=== PATIENT | female | born 1960 | race African-American/Black ===

== ENCOUNTER 2019-11-18 03:18 | Inpatient (IN) | payer MEDICARE ==
[~2019-11-18] VITALS: Ht 157.5 cm; Wt 130.0 kg
[2019-11-18] VITALS (20 sets, daily range): BP systolic 101–141; BP diastolic 61–92; Ht 157.5 cm; Wt 130.0 kg
--- NOTE | ~2019-11-18 | HEMODYNAMI ---
PATIENT:COMFORT STANLEY MEDICAL RECORD: [id number] : 64 LOCATION:[facility] D.2131 ADMISSION DATE: 11/18/19 Generatedon:11/21/201910:18 Patient name: COMFORT STANLEY Patient #: [id number] SSN: : 1960 Date of study: 11/21/2019 Page: Of Hemodynamic Procedure Report Patient Data Patient Demographics First Name: COMFORT Gender: Female Last Name: JADEN : 1960 Patient #: [id number] Age: 59 year(s) Race: Black Additional ID: [id number] Contact details [address]: [address] [place] [address] State: [place] City: [place] Zip code: [address] Past Medical History Allergies Allergen Reaction Date Comments Reported Other allergy 11/21/2019 ASA Admission Admission Data Admission Date: 11/18/2019 Admission Time: 3:51 Arrival Date: 11/21/2019 Arrival Time: 0:00 Admit Source: Other Insurance Payor: Medicare Room #: D.2131 [facility] #: [id number] Height (in.): 63 BSA: 2.25 (m2) Height (cm.): 160.02 BMI: 50.84 (kg/m2) Weight (lbs.): 287 Weight (kg.): 130.18 Lab Results Lab Result Date: 11/21/2019 Lab Result Time: 0:00 Biochemistry Name Units Result Min Max BUN mg/dl 18 --(---*)-- 7 18 Creatinine mg/dl 0.9 --(-*--)-- 0.6 1.3 eGFR ml/min 82.44324 -*(----)-- 90 120 AM CBC Name Units Result Min Max Hemoglobin g/dl 13.9 --(*---)-- 13.5 17.5 Procedure Procedure Types Cath Procedure Diagnostic Procedure LHC LHC w/Coronaries Sedation Charges Moderate Sedation up to 15 minutes Procedure Description Procedure Date Procedure Date: 11/21/2019 Procedure Start Time: 10:05 Procedure End Time: 10:14 Procedure Staff Name Function Sawyer Van MD Performing Physician Holly Barnes RT Monitor Raya Weathers RN Nurse Kamini Carmichael RT Scrub Procedure Data Cath Procedure Fluoroscopy Diagnostic fluoroscopy Total fluoroscopy Time: 1.1 time: 1.1 min min Diagnostic fluoroscopy Total fluoroscopy dose: 586 dose: 586 mGy mGy Contrast Material Contrast Material Type Amount (ml) Isovue 370 53 Entry Location Entry Primary Successful Side Size Upsize Upsize Entry Closure Succes sful Closure Location (Fr) 1 (Fr) 2 (Fr) Remarks Device Remarks Femoral Right 5 Fr Exoseal artery Estimated blood loss: 10 ml Diagnostic catheters Device Type Used For End Catheter Placement MULTIPACK JL 4.0 5Fr Procedure catheter MULTIPACK 3DRC 5Fr Procedure catheter MULTIPACK Pigtail 5 Fr Ventriculography catheter Procedure Complications No complications Procedure Medications Medication Administration Route Dosage 0.9% NaCl I.V. 50 ml/hr Heparin Flush Bag added to field 2 bags (1000units/500ml NS) Lidocaine 2% added to field 20 Oxygen NC 3 l/min Versed I.V. 1 mg Fentanyl I.V. 50 mcg Versed I.V. 1 mg Fentanyl I.V. 50 mcg Hemodynamics Rest BSA: 2.25 (m2) HGB: 13.9 (g/dl) O2 Consumption: Estimated: 229.99 (ml/min) O2 Co nsumption indexed: Estimated:102.22 (ml/min/m) Heart Rate: 87 (bpm) Pressure Samples Time Site Value (mmHg) Purpose Heart Use Rate(bpm) 10:12 LV 149/29,32 Snapshot 89 Gradients Valve Time Site Site Mean SEP/DFP Peak To Heart Use 1 2 (mmHg) (sec/min) Peak Rate (mmHg) (bpm) Aortic 10:12 LV AO 91 Snapshots Pre Cath Intra NCS Post Cath Vital Signs Time Heart Resp SPO2 etCO2 NIBP (mmHg) Rhythm Pain Sedation Rate (ipm) (%) (mmHg) Status Level (bpm) 9:50:46 87 15 95 12.8 151/103(124) NSR 0 (11) 10(A) , No pain 9:55:02 91 22 95 34.7 137/92(113) NSR 0 (11) 10(A) , No pain 9:59:14 87 22 98 41.6 142/98(121) NSR 0 (11) 10(A) , No pain 10:03:27 89 20 98 40.1 141/96(120) NSR 0 (11) 10(A) , No pain 10:07:44 89 18 99 46.1 148/100(117) NSR 0 (11) 10(A) , No pain 10:12:02 89 18 99 36.3 153/103(131) NSR 0 (11) 10(A) , No pain Medications Time Medication Route Dose Verified Delivered Reason Notes Effe ctiveness by by 9:54:41 0.9% NaCl I.V. 50 Sawyer Raya used for ml/hr Naponee Jasiel procedure RN 9:54:49 Heparin Flush added 2 Sawyer Raya used for Bag to bags Naponee Jasiel procedure (1000units/500ml field HERNANDEZ RN NS) 9:55:01 Lidocaine 2% added 20ml Sawyer Raya [facility] local [facility] HERNANDEZ RN 9:55:09 Oxygen NC 3 Sawyer Raya for low 02 l/min Carlota Jasiel sats RN 9:58:52 Versed I.V. 1 mg Sawyer Raya for Carlota Jasiel sedation RN 9:58:59 Fentanyl I.V. 50 Sawyer Raya for mcg Carlota Jasiel sedation RN 10:09:57 Versed I.V. 1 mg Sawyer Raya for Carlota Jasiel sedation MD GOODEN 10:10:01 Fentanyl I.V. 50 Sawyer Raya for mcg Naponee Jasiel sedation MD GOODENborder measurer and cutter Log Time Note 9:28:01 Patient Height : 63 inches 9:28:07 Patient Weight : 287 lbs 9:28:13 Insurance Payor : Medicare 9:28:14 Admit Source: Other 9:28:18 Arrival Date: 11/21/2019 12:00:00 AM 9:28:59 Lab Result : eGFR AM 82.75485 ml/min 9:28:59 Lab Result : Creatinine 0.9 mg/dl 9:28:59 Lab Result : BUN 18 mg/dl 9:28:59 Lab Result : Hemoglobin 13.9 g/dl 9:29:43 Procedure Status Urgent Heart Cath (IP). 9:29:46 Kamini Carmichael RT(R) sent for patient. Start room use. 9:29:48 Time tracking: Regular hours (M-F 7:00 - 5:00) 9:29:52 Plan of Care:Hemodynamics will remain stable., Cardiac rhythm will remain stable., Comfort level will be maintained., Respiratory function will remain adequate., Patient/ family verbilizes understanding of procedure., Procedure tolerated without complication., Recovers from procedure without complications.. 9:29:58 Patient received from Med II to CCL 2 Alert and oriented. Tansferred to table in Supine position. 9:29:59 Warm blankets applied, and karol hugger turned on for patient comfort. 9:30:00 Correct patient and procedure confirmed by team. 9:49:28 ECG and BP/O2 sat monitors applied to patient. 9:49:30 Vital chart was started 9:49:32 Baseline sample Acquired. 9:49:40 H&P Date Dictated: 11/20/2019 Within 30 days and on chart., H&P Addendum completed by physician on day of procedure. (MUST COMPLETE FOR ALL OUTPATIENTS). 9:49:42 Pre-procedure instructions explained to patient. 9:49:46 Family in patients room. 9:49:48 Patient NPO since Midnight. 9:49:58 Patient allergic to Other allergyASA 9:50:07 Is the patient allergic to Iodine/contrast media? No. 9:50:08 Was the patient premedicated? Yes 9:50:09 Is patient on blood thinner?Yes 9:50:13 ACC The patient was administered the following blood thiners within the last 24 hours: ACCHeparin 9:50:17 Patient diabetic? No. 9:50:25 Snore? Yes 9:50:26 Sleep apnea? Yes 9:50:33 Dentures? No ? 9:50:37 Patient pain scale 0/10 ?. 9:50:43 IV patent on arrival in right forearm with 0.9% NaCl at O. 9:54:41 0.9% NaCl 50 ml/hr I.V. was administered by Raya Weathers RN; used for procedure; Verbal order read back and verified. 9:54:49 Heparin Flush Bag (1000units/500ml NS) 2 bags added to field was administered by Raya Weathers RN; used for procedure; Verbal order read back and verified. 9:55:01 Lidocaine 2% 20ml vial added to field was administered by Raya Weathers RN; for local anesthetic; Verbal order read back and verified. 9:55:09 Oxygen 3 l/min NC was administered by Raya Weathers RN; for low 02 sats; Verbal order read back and verified. 9:56:54 Lab results completed and on chart. 9:57:02 Risk of Mortality: 11.5 9:57:07 Risk of blood transfusion: 8.4 9:57:10 Risk of MARIAN: 6.2 9:57:14 Right groin area was prepped with chlora-prep and draped in sterile fashion 9:57:15 Alarms reviewed by R. N. 9:57:15 Sharps counted by scrub and verified by R.N. 9:57:16 Physician arrived 9:57:28 --------ALL STOP TIME OUT------ 9:57:30 Final Timeout: patient, procedure, and site verified with staff and physician. All members of the team are in agreement. 9:57:37 Right groin site verified by team. 9:57:41 Fire Safety Assessment: A--An alcohol-based skin anteseptic being used preoperatively., C--Open oxygen or nitrous oxide is being used., D--An ESU, laser, or fiber-optic light is being used. 9:57:45 Physical assessment completed. ASA score P 3 - A patient with severe systemic disease as per Sawyer Van MD. 9:57:52 2) 60-89 Mildly reduced kidney function, and other findings (as for stage 1) point to kidney disease. 9:57:55 Maximum allowable contrast dose (3.7 X eGFR X 0.75)230 ml. 9:58:01 Sedation plan: IV Moderate Sedation Medication:Versed, Fentanyl 9:58:05 Use device set Femoral Dx 9:58:06 ACIST Syringe (81406) opened to sterile field. 9:58:06 Bag Decanter () opened to sterile field. 9:58:07 Medline Cath Pack ([id number]) opened to sterile field. 9:58:08 ACIST Hand Control (76145) opened to sterile field. 9:58:08 ACIST Manifold (35081) opened to sterile field. 9:58:10 DIAGNOSTIC Multipack 5Fr catheter set (GW9400) opened to sterile field. 9:58:11 Tegaderm 4 x 4 (1626W) opened to sterile field. 9:58:12 SHEATH 5FR Wren (EBL758) opened to sterile field. 9:58:13 EMERALD Guide Wire (843-695) opened to sterile field. 9:58:52 Versed 1 mg I.V. was administered by Raya Weathers RN; for sedation; Verbal order read back and verified. 9:58:59 Fentanyl 50 mcg I.V. was administered by Raya Weathers RN; for sedation; Verbal order read back and verified. 10:05:05 Procedure started. 10:05:05 Full Disclosure recording started 10:05:13 Local anesthetic to right femoral artery with Lidocaine 2% by Sawyer Van MD.INITIAL ACCESS ONLY 10:05:21 A 5 Fr sheath was inserted into the Right Femoral artery 10:07:48 A MULTIPACK JL 4.0 5Fr catheter was advanced over the wire and used for Procedure. 10:07:51 LCA angiography performed. 10:09:57 Versed 1 mg I.V. was administered by Raya Weathers RN; for sedation; Verbal order read back and verified. 10:10:01 Fentanyl 50 mcg I.V. was administered by Raya Weathers RN; for sedation; Verbal order read back and verified. 10:10:06 Catheter removed. 10:10:13 A MULTIPACK 3DRC 5Fr catheter was advanced over the wire and used for Procedure. 10:10:17 RCA angiography performed. 10:10:52 Catheter removed. 10:11:00 A MULTIPACK Pigtail 5 Fr catheter was advanced over the wire and used for Ventriculography. 10:11:03 LV gram done using ARMENDARIZ 10:12:15 EF : 55 % 10:12:21 EXOSEAL 5Fr (EX500) opened to sterile field. 10:12:32 Catheter removed. 10:12:43 Sheath removed intact; hemostasis achieved with Exoseal to the Right Femoral artery. 10:12:46 Procedure ended.(Physican Out) 10:12:56 Fluoroscopy time 01.10 minutes. 10:13:00 Fluoroscopy dose: 586 mGy 10:13:00 Flurop Dose total: 586 10:13:05 Dose Area Product 20293 mGy/cm. 10:13:35 Contrast amount:Isovue 370 53ml. 10:13:36 Maximum allowable dose exceeded? No. 10:13:45 Post right femoral artery:stable 10:13:47 Post Procedure Pulses reassessed and unchanged 10:13:59 Post-procedure physical assessment completed. ASA score P 3 - A patient with severe systemic disease as per Sawyer Van MD. 10:14:02 Post procedure rhythm: unchanged. 10:14:05 Estimated blood loss: 10 ml 10:14:06 Post procedure instruction explained to patient.Patient verbalizes understanding. 10:14:21 Procedure type changed to Cath procedure, Diagnostic procedure, LHC, [facility] w/Coronaries, Sedation Charges, Moderate Sedation up to 15 minutes 10:14:22 Procedure and supply charges have been captured, reviewed, submitted and are correct. 10:14:37 Procedure Complication : No complications 10:14:40 Vital chart was stopped 10:14:42 [facility] Findings: MVD- MD will discuss options w/ pt 10:14:44 Operative report dictated upon procedure completion. 10:14:45 See physician's report for complete and final results. 10:14:48 Report given to [facility]. 10:14:51 Patient transfered to [facility] with Bed. 10:14:53 Procedure ended. 10:14:53 Full Disclosure recording stopped Device Usage Item Name Manufacture Quantity Catalog Hospital Part Current Minimal L ot# / Number Charge Number Stock Stock Serial# Code ACIST Acist 1 19718 339952 213696 581308 20 Syringe Medical (58889) Systems Inc Bag Microtek 1 698327 62042 805554 5 Decanter Medical Inc. () Medline Medline 1 [id number] 839168 82876 321046 5 Cath Pack ([id number]) ACIST Hand Acist 1 35222 834528 975083 040429 5 Control Medical (46986) Systems Inc ACIST Acist 1 05716 756542 144268 014208 5 Manifold Medical (96189) Systems Inc DIAGNOSTIC Cardinal 1 [id number] 366268 24225 487646 30 Opanga Networks 5Fr catheter set ([id number]) Tegaderm 4 3M 1 1626W 123408 944842 661046 5 x 4 (1626W) SHEATH 5FR Terumo 1 PMP145 987800 339120 502437 5 Wren (BBR343) EMERALD Cardinal 1 571-103 715615 701487 326819 5 Guide Wire Health (656-179) MULTIPACK Cardinal 1 889693 5 JL 4.0 5Fr Health catheter MULTIPACK Cardinal 1 783700 5 3DRC 5Fr Health catheter MULTIPACK Cardinal 1 666966 5 Pigtail 5 Health Fr catheter EXOSEAL 5Fr Cardinal 1 EX500 437869 767627 650160 10 (EX500) Health Signature Audit [place] Stage Time Signature Unsigned Intra-Procedure 11/21/2019 Holly Barnes 10:15:24 AM RT(R); Raya Weathers RN; Sawyer Van MD Signatures Performing Physician : Signature : Sawyer Van MD Date : Time : Monitor : Holly Barnes Signature : RT Date : Time : Nurse : Raya Signature : Jasiel GOODEN Date : Time : [facility] [address] [place] [address]
[2019-11-18 04:11] LABS: CKMB 2.5 U/L (0.0-3.6); CREATINE KINASE 229 UL (21-215); PRO BNP 4642 pg/mL (0-125)
[2019-11-18 05:20] LABS: HEMATOCRIT 43.4 % (36.0-48.0); HEMOGLOBIN 13.8 g/dL (12-16); MCH 32.4 pg (26.0-34.0); MCHC 31.8 g/dL (31.0-37.0); MCV 101.9 fL (80.0-100.0); MEAN PLATELET VOLUME 11.6 fL (7.4-10.4); RBC 4.26 10x6/uL (4.00-5.40); RDW 13.3 % (11.5-14.5); WBC 6.8 10x3/uL (4.8-10.8)
[2019-11-18 05:24] LABS: INR 1.07 (0.85-1.17); PROTIME 13.8 SECONDS (11.6-15.0)
[2019-11-18 05:25] LABS: APTT 70.2 SECONDS (22.8-39.4)
--- NOTE | 2019-11-18 05:31 | NUR ---
RECEIVED PT FROM ED VIA STRETCHER ACCOMP BY ED NURSE AND RT. PT TRANSFERRED TO ICU BED, PIPE AND TANK FABRICATOR ATTACHED. RT AT BEDSIDE PLACED PT ON BIPAP. PT LETHARGIC AND SOMNOLENT, AROUSES WITH VOICE, SR ON CM, ADMISSION ASSESSMENT AND HISTORY COMPLETED. CALL LIGHT IN REACH. WILL CONT TO MONITOR.
[2019-11-18] MEDS ORDERED: LEVOTHYROXINE137 MCG PO (05:50)
[2019-11-18] MEDS ORDERED: WELLBUTRIN SR150 MG PO (05:50)
[2019-11-18] MEDS ORDERED: MOBIC7.5 MG PO (05:51)
[2019-11-18] MEDS ORDERED: NORVASC10 MG PO ×2 (05:51→05:54)
[2019-11-18] MEDS ORDERED: MAXZIDE 75/501 TAB PO (05:52)
[2019-11-18] MEDS ORDERED: METOPROLOL TART50 MG PO (05:54)
--- NOTE | 2019-11-18 07:00 | NUR ---
RECEIVED BEDSIDE REPORT ON PATIENT AND ASSUMED CARE. PATIENT RESTING QUIETLY WITH EYES CLOSED, EASILY AROUSED BY VOICE, ALERT AND ORIENTED X 4, ON BIPAP WITH SPO2 AT 96%, SETTINGS FIO2 40%, 16/8, CM - NSR RATE OF 68 WITH NO ECTOPY NOTED. BBS - EXPIRATORY WHEEZES BILATERALLY AND DIMINISHED IN THE BASES. IV 20 GA TO LEFT WRIST WITH HEPARIN INFUSING AT 1,000 UNIT/HR (10 ML/HR). IV 20 GA TO RIGHT AC NS, FLUSHES EASILY. BROOKE CATH IN PLACE WITH 500 ML OF CLEAR UOP NOTED. HEAD TO TOE ASSESSMENT COMPLETED. VSS.
--- NOTE | 2019-11-18 07:53 | NUR ---
DR MONROE CALLED AND MADE AWARE OF CARDIOLOGY CONSULT.
--- NOTE | 2019-11-18 08:29 | NUR ---
PATIENT DIFFICULT TO AROUSE BY STERNAL RUB, CONFUSED, RT CALLED TO OBTAIN STAT ABG.
--- NOTE | 2019-11-18 10:00 | NUR ---
DR. READ AT ROOM UPDATED AND EXAMINES PATIENT. UDS, UA AND UC COLLECTED AND SENT TO LAB. VSS. ECHOCARDIOGRAM COMPLETED.
--- NOTE | 2019-11-18 10:24 | NUR ---
CXR COMPLETED. VSS. DR. BIRCH AT ROOM UPDATED NAD SONA SHETH.
[2019-11-18 10:48] LABS: ALBUMIN 3.5 g/dL (3.4-5.0); ANION GAP 16.6 mmol/L (8-16); BILIRUBIN - TOTAL 1.35 mg/dL (0.2-1.3); CALCIUM 8.6 mg/dL (8.5-10.1); CARBON DIOXIDE 27.1 mmol/L (21.0-32.0); POTASSIUM - SERUM 4.7 mmol/L (3.5-5.1); PROTEIN - SERUM 8.6 g/dL (6.4-8.2)
[2019-11-18 10:49] LABS: BASOPHILS 0 % (0-2); EOSINOPHILS 0 % (0-7); HEMATOCRIT 41.2 % (36.0-48.0); HEMOGLOBIN 13.1 g/dL (12-16); IMMATURE GRANULOCYTES 0.3 % (0-5); LYMPHOCYTES 18.3 % (15-50); MCH 32.5 pg (26.0-34.0); MCHC 31.8 g/dL (31.0-37.0); MCV 102.2 fL (80.0-100.0); MEAN PLATELET VOLUME 11.3 fL (7.4-10.4); MONOCYTES 6.7 % (2-11); NEUTROPHILS 74.7 % (40-80); PLATELET COUNT 121 10x3/uL (130-400); RBC 4.03 10x6/uL (4.00-5.40); RDW 13.1 % (11.5-14.5)
[2019-11-18 11:18] LABS: CKMB 1.8 U/L (0.0-3.6); CREATINE KINASE 213 UL (21-215)
[2019-11-18 11:21] LABS: TROPONIN-I 0.288 ng/mL (0.000-0.060)
[2019-11-18 11:33] LABS: UDS - AMPHET NEGATIVE QUAL (NEGATIVE); UDS - BARB NEGATIVE QUAL (NEGATIVE); UDS - BENZO NEGATIVE QUAL (NEGATIVE); UDS - COCAINE NEGATIVE QUAL (NEGATIVE); UDS - OPIATE POSITIVE QUAL (NEGATIVE); UDS - PCP NEGATIVE QUAL (NEGATIVE); UDS - THC NEGATIVE QUAL (NEGATIVE)
[2019-11-18 11:42] LABS: BACTERIA FEW /hpf (NEGATIVE); BILIRUBIN NEGATIVE (NEGATIVE); EPITHELIAL CELLS OCC /hpf (0-5); GLUCOSE NEGATIVE (NEGATIVE); KETONE MODERATE mg/dL (NEGATIVE); NITRITE NEGATIVE (NEGATIVE); SPECIFIC GRAVITY 1.025 (1.005-1.020); UROBILINOGEN NORMAL (NORMAL); WHITE CELLS - URINE 0-5 /hpf (NEGATIVE)
--- NOTE | 2019-11-18 11:53 | NUR ---
PTT - 66.2 PER HEPARIN PROTOCOL NO CHANGE NEEDED FOR 65-90 AND REPEAT PTT IN AM.
--- NOTE | 2019-11-18 12:10 | NUR ---
PATIENTS DAUGHTER AT ROOM UDPATED AND QUESTIONS ANSWERED.
--- NOTE | 2019-11-18 15:20 | NUR ---
REASSESSMENT COMPLETED AND 12 LEAD ECG COMPLETED. LAB AT ROOM FOR CARDIAC ENZYMES.
[2019-11-18 16:00] LABS: CKMB 1.8 U/L (0.0-3.6); CREATINE KINASE 207 UL (21-215); TROPONIN-I 0.208 ng/mL (0.000-0.060)
--- NOTE | 2019-11-18 17:13 | NUR ---
PATIENT TURNED AND REPOSITIONED IN BED. VSS.
--- NOTE | 2019-11-18 17:35 | MORECARE ---
CASE MANAGEMENT DISCHARGE SUMMARY PATIENT: COMFORT STANLEY UNIT: [id number] ADM DATE: 11/18/19 AGE: 59 : 64 SEX: F ROOM/BED: D.2312 AUTHOR: BERHANE CABEZAS PHYSICIAN: REFERRING PHYSICIAN: GIFTY BIRCH MD DATE OF SERVICE: 11/18/19 Discharge Plan Patient Name: COMFORT STANLEY Facility: [facility]:[place] : 1960 Planned Disposition: Anticipated Discharge Date: Discharge Date: Expected LOS: Initial Reviewer: [email or web address] Initial Review Date: 11/18/2019 Generated: 11/18/19 6:35 pm Comments DCP- Discharge Planning Updated by [email or web address]: Karen Sharp on 11/18/19 4:[address] CM attempted to assess patients discharge planning needs. Patient is on continuous bipap and unable to answer questions. There isn't a life insurance salesperson listed on facesheet. CM looked throughout patient's hard chart and found a number to Tonja Amado [phone]. CM called but did not get an answer. CM will continue to follow and assist as needed with discharge planning / needs. DCPIA - Discharge Planning Initial Assessment Updated by [email or web address]: Karen Sharp on 11/18/19 5:28 pm * How many steps to enter\exit or inside your home? Patient Name: COMFORT STANLEY Page [phone] at 1735 All edits/amendments must be made on the electronic document DICTATION DATE: 11/18/191734 AIRCRAFT ENGINE MECHANIC SUPERVISOR: MARIS 11/18/191734 RPT#: [id number] DC DATE: STATUS: ADM IN [facility] [address] [place] [address] END OF REPORT
--- NOTE | 2019-11-18 21:20 | NUR ---
PT FAMILY IN FOR VISITATION, UPDATE GIVEN AND ALL QUESTIONS ANSWERED. EXTRA PILLOW PROVIDED PER REQUEST, PT AND FAMILY DENY ANY OTHER NEEDS AT THIS TIME, BED LOW AND CALL LIGHT IN REACH.
[2019-11-18 22:04] LABS: CKMB 1.5 U/L (0.0-3.6); CREATINE KINASE 244 UL (21-215)
[2019-11-19] VITALS (13 sets, daily range): BP systolic 108–122; BP diastolic 60–87
--- NOTE | 2019-11-19 01:36 | NUR ---
PT RESTING IN BED WITH EYES CLOSED, VSS, BIPAP IN PLACE, BED LOW, AND CALL LIGHT IN REACH. CONT TO MONITOR.
[2019-11-19 04:34] LABS: BASOPHILS 0 % (0-2); EOSINOPHILS 0 % (0-7); HEMATOCRIT 39.3 % (36.0-48.0); HEMOGLOBIN 12.3 g/dL (12-16); IMMATURE GRANULOCYTES 0.2 % (0-5); LYMPHOCYTES 22.2 % (15-50); MCH 32.2 pg (26.0-34.0); MCHC 31.3 g/dL (31.0-37.0); MCV 102.9 fL (80.0-100.0); MEAN PLATELET VOLUME 11.4 fL (7.4-10.4); MONOCYTES 11.4 % (2-11); NEUTROPHILS 66.2 % (40-80); PLATELET COUNT 128 10x3/uL (130-400); RBC 3.82 10x6/uL (4.00-5.40); RDW 13.2 % (11.5-14.5)
[2019-11-19 04:44] LABS: CALCIUM 8.5 mg/dL (8.5-10.1); CARBON DIOXIDE 39.8 mmol/L (21.0-32.0)
[2019-11-19 04:45] LABS: POTASSIUM - SERUM 3.8 mmol/L (3.5-5.1)
--- NOTE | 2019-11-19 05:40 | NUR ---
AM LABS REVIEWED, NOTHING TO TREAT PER ELECTROLYTE PROTOCOL.
--- NOTE | 2019-11-19 08:39 | NUR ---
LYING IN BED ON BIPAP AT THIS TIME. VSS. NO ACUTE DISTERSS NOTED. CALL LIGHT IN REACH. PT AWAKES WHEN SPOKEN TO. WILL CONTINUE PLAN OF CARE.
--- NOTE | 2019-11-19 10:26 | NUR ---
LYING IN BED ON BIPAP AT THIS TIME. VSS. NO ACUTE DISTRESS NOTED. PT WAKES UP WHEN SPOKEN TO, ALERT AND ORIENTED. REPOSITIONING PROVIDED Q2H. WILL CONTINUE PLAN OF CARE.
--- NOTE | 2019-11-19 12:27 | NUR ---
UP IN BED EATING LUNCH AT THIS TIME. VSS. NO ACUTE DISTRESS NOTED. PT CURRENTLY TOLERATING O2 VIA NC. NOTED ORDER IS TO BE ON/OFF BIPAP/NC 4H ON/4H OFF AND QHS. WILL CONTINUE PLAN OF CARE.
--- NOTE | 2019-11-19 13:29 | NUR ---
NO ACUTE DISTRESS NOTED. NO CHANGE. VSS. WILL CONTINUE PLAN OF CARE.
--- NOTE | 2019-11-19 15:17 | NUR ---
CHG BATH PROVIDED TO PT AT THIS TIME ALONG WITH TOTAL LINEN CHANGE. INCONTINENT BOWEL MOVEMENT NOTED. KARTHIK CARE/BROOKE CARE PROVIDED. NO ACUTE DISTRESS NOTED. PT REPOSITIONED Q2H. VSS. WILL CONTINUE PLAN OF CARE.
--- NOTE | 2019-11-19 17:18 | NUR ---
PER DR READ. [place] TO TRANSFER TO FLOOR.
--- NOTE | 2019-11-19 17:19 | NUR ---
REPORT CALLED TO RECIEVING NURSE, WILL TRANSFER PT SHORTLY.
--- NOTE | 2019-11-19 17:53 | NUR ---
PT TRANSFERRED TO 2130 AT THIS TIME VIA BED WITH ALL PERSONAL ITEMS. VSS. NO ACUTE DISTRESS NOTED. NO FURTHER ACTIONS.
--- NOTE | 2019-11-19 18:05 | NUR ---
PATIENT ARRIVED HERE FROM ICU. SHE IS ALERT AND ORIENTED. HEPARIN INFUSING ORDERED. SHE HAS HAD A BM,AND A BATH. BROOKE EMPTIED AND CHARTED BY ICU NURSE. WILL MONITOR CLOSELY.
--- NOTE | 2019-11-19 19:30 | NUR ---
RECEIVED REPORT, WILL ASSUME CARE OF PT, DENIES ANY NEEDS AT THIS TIME, BED IS LOW, SRX2, CALL LIGHT IN REACH, WILL CONTINUE PLAN OF CARE
[2019-11-20] VITALS: BP 124/66
[2019-11-20 04:00] VITALS: BP 125/58
[2019-11-20 04:34] LABS: BASOPHILS 0.2 % (0-2); EOSINOPHILS 1.7 % (0-7); HEMATOCRIT 42.4 % (36.0-48.0); HEMOGLOBIN 13.5 g/dL (12-16); LYMPHOCYTES 32.4 % (15-50); MCH 32.5 pg (26.0-34.0); MCHC 31.8 g/dL (31.0-37.0); MCV 102.2 fL (80.0-100.0); MEAN PLATELET VOLUME 11.5 fL (7.4-10.4); MONOCYTES 11.4 % (2-11); NEUTROPHILS 54.3 % (40-80); PLATELET COUNT 133 10x3/uL (130-400); RBC 4.15 10x6/uL (4.00-5.40); WBC 5.3 10x3/uL (4.8-10.8)
[2019-11-20 04:58] LABS: ALBUMIN 3.1 g/dL (3.4-5.0); ANION GAP 6.2 mmol/L (8-16); BILIRUBIN - TOTAL 1.18 mg/dL (0.2-1.3); CALCIUM 8.7 mg/dL (8.5-10.1); CARBON DIOXIDE 42.1 mmol/L (21.0-32.0); CREATININE - SERUM 0.9 mg/dL (0.6-1.3); POTASSIUM - SERUM 3.3 mmol/L (3.5-5.1); PROTEIN - SERUM 7.9 g/dL (6.4-8.2)
--- NOTE | 2019-11-20 05:45 | NUR ---
I have reviewed this patient and I concur with the Shift Assessment completed by the Licensed Practical Nurse today this shift.
--- NOTE | 2019-11-20 07:54 | NUR ---
RECIEVED REPORT. PATIENT IS AWAKE AND ALERT AND DENIES ANY NEEDS AT THIS TIME.
[2019-11-20 10:00] VITALS: BP 131/72
[2019-11-20 12:20] VITALS: BP 122/76
[2019-11-20 14:38] LABS: BASOPHILS 0.2 % (0-2); EOSINOPHILS 2.3 % (0-7); HEMATOCRIT 43.3 % (36.0-48.0); HEMOGLOBIN 13.7 g/dL (12-16); IMMATURE GRANULOCYTES 0.2 % (0-5); LYMPHOCYTES 30.1 % (15-50); MCH 32.2 pg (26.0-34.0); MCHC 31.6 g/dL (31.0-37.0); MCV 101.6 fL (80.0-100.0); MEAN PLATELET VOLUME 11.5 fL (7.4-10.4); MONOCYTES 9.5 % (2-11); NEUTROPHILS 57.7 % (40-80); PLATELET COUNT 137 10x3/uL (130-400); RBC 4.26 10x6/uL (4.00-5.40); WBC 5.3 10x3/uL (4.8-10.8)
[2019-11-20 15:15] LABS: ANION GAP 7.2 mmol/L (8-16); CALCIUM 8.8 mg/dL (8.5-10.1); CARBON DIOXIDE 39.8 mmol/L (21.0-32.0); CHOL - HDL RATIO 4.1 ratio (2.3-4.1); LDL-HDL RATIO 2.5 ratio (1.5-3.5)
[2019-11-20 16:37] VITALS: BP 131/77
[2019-11-20 20:00] VITALS: BP 132/78
--- NOTE | 2019-11-20 22:29 | NUR ---
INITIAL ROUNDS COMPLETED AT 1915 HRS. PT DENIED ANY DISCOMFORT. FAMILY AT BEDSIDE. ASSESSMENT COMPLETED AT 1950 HRS. VSS. SR PER CM HR 85. ALERT AND ORIENTED TO PERSON, PLACE AND TIME. MULLINS IV TO L WRIST WITH HEPARIN AT 800 U/HR. IV PATENT. IV TO RAC SL. O2 3LNC. BROOKE DRAINING YELLOW URINE. LUNGS DIMINISHED IN BASES BILAT. 1+ EDEMA TO FEET. PM MEDS GIVEN. NORCO PO GIVEN FOR C/O BACK PAIN AT 2225 HRS. PT CURRENTLY RESTING WITH EYES CLOSED. RESP EVEN AND REGULAR. SR UP X2,CALL LIGHT WITHIN REACH AND BIPAP ON.
--- NOTE | 2019-11-21 00:06 | NUR ---
PT RESTING WITH EYES CLOSED. RESP EVEN AND REGULAR. SR UP X2, CALL LIGHT WITHIN REACH.
[2019-11-21 00:30] VITALS: BP 115/73
--- NOTE | 2019-11-21 03:31 | NUR ---
PT RESTING WITH EYES CLOSED. RESP EVEN AND REGULAR. O2 3LNC. SR UP X2, CALL LIGHT WITHIN REACH.
[2019-11-21 04:00] VITALS: BP 131/73
--- NOTE | 2019-11-21 05:46 | NUR ---
VSS THROUGHOUT NIGHT. SR PER CM. PT STATED NORCO HELPED CONTROL HER BACK PAIN. NEEDS MET; WILL CONTINUE TO MONITOR.
--- NOTE | 2019-11-21 06:16 | NUR ---
HIBICLENS BATH DONE, BED LINENS CHANGED. PT REPOSITONED IN BED FOR COMFORT. PT'S GROIN PREPPED AND CLIPPED PER ORDERS. PT TOLERATED ACTIVITY WELL.
[2019-11-21 06:42] LABS: BASOPHILS 0.2 % (0-2); HEMATOCRIT 43.6 % (36.0-48.0); HEMOGLOBIN 13.9 g/dL (12-16); IMMATURE GRANULOCYTES 0.2 % (0-5); LYMPHOCYTES 29.8 % (15-50); MCH 32.2 pg (26.0-34.0); MCHC 31.9 g/dL (31.0-37.0); MCV 100.9 fL (80.0-100.0); MEAN PLATELET VOLUME 12.1 fL (7.4-10.4); MONOCYTES 9.6 % (2-11); NEUTROPHILS 54.2 % (40-80); PLATELET COUNT 145 10x3/uL (130-400); RBC 4.32 10x6/uL (4.00-5.40); RDW 13.2 % (11.5-14.5); WBC 5.5 10x3/uL (4.8-10.8)
[2019-11-21 07:05] LABS: ANION GAP 7.2 mmol/L (8-16); CALCIUM 8.6 mg/dL (8.5-10.1); CARBON DIOXIDE 39.2 mmol/L (21.0-32.0); CREATININE - SERUM 0.9 mg/dL (0.6-1.3); POTASSIUM - SERUM 3.4 mmol/L (3.5-5.1)
--- NOTE | 2019-11-21 07:23 | NUR ---
PATIENT IS ALERT AND AWAKE AND DENIES ANY NEEDS AT THIS TIME. SHE IS GETTING HER BREATHING TREATMENT AND IS NPO AND HAS HAD HER HIPPA CLEANSE.CONSENTS IN THE CHART. SHE IS READY FOR HER PROCEDURE.
[2019-11-21 08:34] VITALS: BP 118/81
--- NOTE | 2019-11-21 10:03 | NUR ---
PATIENT IS IN MAINTENANCE OF WAY FOREMAN NOW.
--- NOTE | 2019-11-21 10:54 | NUR ---
PATIENT RETURNED FROM LAMINATING MACHINE OPERATOR. VITAL SIGNS STABLE. CLEAN CATH BY [facility]. INCISION SITE TO THE RIGHT GROIN. NO HEMATOMA NO BLEEDING NOTED. THE PATIENT IS IN DISCOMFORT BECAUSE IT IS HARD FOR HER TO LAY ON HER BACK. PAIN MEDICATION GIVEN ORDERED. DAUGHTER AT BED SIDE. VITAL SIGNS STABLE.
[2019-11-21 11:00] VITALS: BP 127/85
--- NOTE | 2019-11-21 11:19 | EC ---
PATIENT:COMFORT STANLEY DATE OF SERVICE: 11/18/19 SEX: F MEDICAL RECORD: [id number] DATE OF : [birth year] LOCATION:D.M2 D.213 AGE OF PATIENT: 59 ADMISSION DATE: 11/18/19 REFERRING PHYSICIAN: INTERPRETING PHYSICIAN: NARDA MONROE MD ECHOCARDIOGRAM REPORT ECHO CHARGES 4 ECHO COMPLETE Date: 11/18/19 CLINICAL DIAGNOSIS: CHF ECHOCARDIOGRAPHIC MEASUREMENTS (adult normal given) AC root (d.<3.7cm) 3.1 cm LV Septum d (<1.2 cm> 1.4 cm Valve Excursion 1.9 cm LV Septum (systole) 2.2 cm Left Atria (s.<4.0cm> 4.3 cm LVPW d(<1.2cm) 1.5 cm RV (d.<2.3cm) 2.3 cm LVPW (sytole) 2.1 cm LV diastole(<5.6CM) 5.0 cm MV E-F(>70mm/sec) cm LV systole 2.6 cm LVOT Diameter 2.2 cm MV exc.(>10mm) cm Est.ejection fraction (50-75%) % DOPPLER: LVIT cm/sec A 55.0 cm/sec E 82.0 cm/sec LA cm/sec RVSP 15.1 mmHg LVOT 114 cm/sec AOP1/2T m/s Asc. Ao 165 cm/sec RVOT 61.0 cm/sec RA cm/sec PA 78.0 cm/sec AV Gradient Peak 11.0 mmHg AV Mean 6.2 mmHg AV Area 2.4 cm MV Gradient Peak 4.2 mmHg MV Mean 1.5 mmHg MV Area cm COMMENTS: Marketing Copywriter: 1 JUAN FLYNNOE Motor Bus Driver: 3 Dr. James TAPE# PACS Pericardial Effusion N DATE OF SERVICE: Adequate 2D, color flow imaging, spectral Doppler, and M-mode. Mild LVH. LV internal dimensions are normal. Wall motion is normal. EF is greater than or equal to 55%. Aortic valve is tricuspid. No evidence of stenosis by Doppler interrogation. Left atrium is mildly dilated at 4.3 cm. Mitral valve shows no prolapse. Trace MR. Right-sided chambers are grossly normal. Trace TR. ECHOCARDIOGRAM REPORT [id number] COMFORT STANLEY TRANSINT:[id number] Voice Confirmation ID: [id number] DOCUMENT ID: [id number] NARDA MONROE MD at 1119 CC: [id number] DICTATION DATE: 11/20/19 1224 GORE SEAMER: 11/20/192020 ADM IN [facility] [address] [id number]
--- NOTE | 2019-11-21 15:01 | NUR ---
SPOKE WITH DR PETERSEN ON TELEPHONE FOR D/C ORDER OF HEPRIN.
--- NOTE | 2019-11-21 15:21 | NUR ---
Nutrition Follow-up: NPO for cath this AM. Diet: Regular PO intake: 65% avg x 5 meals Wt: 286# (11/20); 292# (11/17) I/Os: -2073 (11/19), -1979 (11/18), -2052 (11/17) Labs noted: K+ 3.4, Glu 124 Meds noted: Protonix, Lasix, KDur -Change to cardiac diet; was on cardiac diet prior to cath. -Encourage PO intake and honor food preferences within diet restrictions. -Monitor wt; noted daily wts ordered. -RD following.
--- NOTE | 2019-11-21 17:07 | MORECARE ---
CASE MANAGEMENT DISCHARGE SUMMARY PATIENT: COMFORT STANLEY UNIT: [id number] ADM DATE: 11/18/19 AGE: 59 : 64 SEX: F ROOM/BED: D.2131 AUTHOR: JOCELYNN,DOC PHYSICIAN: REFERRING PHYSICIAN: GIFTY BIRCH MD DATE OF SERVICE: 11/21/19 Discharge Plan Patient Name: COMFORT STANLEY Facility: [facility]:[place] : 1960 Planned Disposition: Home with Home Health Anticipated Discharge Date: Discharge Date: Expected LOS: Initial Reviewer: [email or web address] Initial Review Date: 11/18/2019 Generated: 11/21/19 6:07 pm DCP- Discharge Planning Updated by [id number]: Karen Sharp on 11/18/19 4:[address] CM attempted to assess patients discharge planning needs. Patient is on continuous bipap and unable to answer questions. There isn't a tool design draftsperson listed on facesheet. CM looked throughout patient's hard chart and found a number to Tonja Amado [phone]. CM called but did not get an answer. CM will continue to follow and assist as needed with discharge planning / needs. DCPIA - Discharge Planning Initial Assessment Updated by [email or web address]: [place] on 11/21/19 5:06 pm * Is the patient Alert and Oriented? Yes * How many steps to enter\exit or inside your home? NONE * PCP DR. Tanvi KO * Pharmacy [facility] * Preadmission Environment Home Alone * ADLs Independent * Equipment None * Other Equipment [facility] - MEDICAL EQUIPMENT PROVIDER PREFERENCE * List name and contact numbers for known caregivers / representatives who currently or will assist patient after discharge: TOMAS AMADO, OTISR, * Verbal permission to speak to the caregivers and representatives has been obtained from the patient. N/A * Community resources currently utilized None * Please name any agencies selected above. NONE * Additional services required to return to the preadmission environment? No * Can the patient safely return to the preadmission environment? Yes * Has this patient been hospitalized within the prior 30 days at any hospital? No Last DP export: 11/18/19 4:35 p Patient Name: COMFORT STANLEY Page 85100 at 1707 All edits/amendments must be made on the electronic document DICTATION DATE: 11/21/191706 COLOR BLENDER: MARIS 11/21/191706 RPT#: [id number] DC DATE: STATUS: ADM IN [facility] [address] [place] [address] END OF REPORT
--- NOTE | 2019-11-21 17:22 | MORECARE ---
CASE MANAGEMENT DISCHARGE SUMMARY PATIENT: COMFORT STANLEY UNIT: [id number] ADM DATE: 11/18/19 AGE: 59 : 64 SEX: F ROOM/BED: D.2131 AUTHOR: JOCELYNN,DOC PHYSICIAN: REFERRING PHYSICIAN: GIFTY BIRCH MD DATE OF SERVICE: 11/21/19 Discharge Plan Patient Name: COMFORT STANLEY Facility: [facility]:[place] : 1960 Planned Disposition: Home with Home Health Anticipated Discharge Date: Discharge Date: Expected LOS: Initial Reviewer: [email or web address] Initial Review Date: 11/18/2019 Generated: 11/21/19 6:21 pm Comments DCP- Discharge Planning Updated by [id number]: [place] on 11/21/19 4:[address] Patient Name: COMFORT STANLEY Admission Status: ER Accout number: [id number] Admission Date: 11-18-2019 : 1960 Admission Diagnosis: Attending: GIFTY BIRCH Current LOS: 3 Anticipated DC Date: Planned Disposition: Home with Home Health Primary Insurance: MEDICARE A & B PLANNED EXTERNAL PROVIDER: [facility] Discharge Planning Comments: CM MET WITH PT IN ROOM TO DISCUSS DISCHARGE PLANNING AND NEEDS. PT REPORTS LIVING AT HOME INDEPENDENTLY AND ALONE PRIOR TO ADMISSION. PT PLANS TO DISCHARGE TO HER DAUGHTER'S HOME AT DISCHARGE. PT HAS NO MEDICAL EQUIPMENT AND NO OUTSIDE SERVICES ASSISTING IN THE HOME. CM DISCUSSED AVAILABILITY OF HOME HEALTH, REHAB SERVICES AND MEDICAL EQUIPMENT. PT WOULD LIKE A SHOWER CHAIR, WIDE BEDSIDE COMMODE FROM [facility] AND HOME HEALTH FROM [facility]; PT REPORTS HER DAUGHTER WILL PICK HER UP FOR DISCHARGE HOME. IMPORTANT MESSAGE FROM MEDICARE PROVIDED AND EXPLAINED, CHOICE SIGNED FOR [facility] AND [facility]. CM TO ARRANGE HOME HEALTH, [facility], WITH PHYSICIAN AGREEEMENT AND HOME HEALTH ORDER, PCP IS DR. Tanvi KO. Cinder Block Mason: [place] DCP- Discharge Planning Updated by [id number]: Karen Sharp on 11/18/19 4:[address] CM attempted to assess patients discharge planning needs. Patient is on continuous bipap and unable to answer questions. There isn't a printed circuit boards contact printer listed on facesheet. CM looked throughout patient's hard chart and found a number to Tonja Sternant [phone]. CM called but did not get an answer. CM will continue to follow and assist as needed with discharge planning / needs. DCPIA - Discharge Planning Initial Assessment Updated by ALE: [place] on 11/21/19 5:06 pm * Is the patient Alert and Oriented? Yes * How many steps to enter\exit or inside your home? NONE * PCP DR. Tanvi KO * Pharmacy [facility] * Preadmission Environment Home Alone * ADLs Independent * Equipment None * Other Equipment [facility] - MEDICAL EQUIPMENT PROVIDER PREFERENCE * List name and contact numbers for known caregivers / representatives who currently or will assist patient after discharge: TOMAS ANEUDY, DTR, * Verbal permission to speak to the caregivers and representatives has been obtained from the patient. N/A * Community resources currently utilized None * Please name any agencies selected above. NONE * Additional services required to return to the preadmission environment? No * Can the patient safely return to the preadmission environment? Yes * Has this patient been hospitalized within the prior 30 days at any hospital? No Coverage Notice Reviewer: [id number] Og[place] Notice Issued Date-Time: 11/21/2019 16:25 Notice Type: Patient Choice Letter Notice Delivered To: Patient Relationship to Patient: Product Safety Administrator Name: Delivery Method: HAND - Hand Delivered Luci Days: Prior Verbal Notification: Recipient Understood Notice: Yes Recipient Signature: Yes Med Rec Note Co-signed by Attending: Coverage Notice Comment: [facility] Reviewer: [id number] Olivia Og[place] Notice Issued Date-Time: 11/21/2019 16:23 Notice Type: IM Discharge Notice Notice Delivered To: Patient Relationship to Patient: Product Safety Administrator Name: Delivery Method: HAND - Hand Delivered Luci Days: Prior Verbal Notification: Recipient Understood Notice: Yes Recipient Signature: Yes Med Rec Note Co-signed by Attending: Coverage Notice Comment: Last DP export: 11/21/19 4:07 p Patient Name: COMFORT STANLEY Page [id number] at 1722 All edits/amendments must be made on the electronic document DICTATION DATE: 11/21/191720 DRYER OPERATOR: MARIS 11/21/191720 RPT#: [id number] DC DATE: STATUS: ADM IN [facility] [address] [place] [address] END OF REPORT
[2019-11-21 20:00] VITALS: BP 117/59
--- NOTE | 2019-11-21 22:25 | NUR ---
EVENING ROUNDS COMPLETE. PT LAYING IN BED. NO SIGNS OF DISTRESS. FAMILY AT BEDSIDE. PT DENIES ANY PAIN OR NEEDS AT THIS TIME. CL IN REACH, BED IN LOWEST POSITION.
[2019-11-22] VITALS: BP 125/71
[2019-11-22 04:00] VITALS: BP 132/82
[2019-11-22 06:23] LABS: BASOPHILS 0.2 % (0-2); EOSINOPHILS 4.9 % (0-7); HEMATOCRIT 44.7 % (36.0-48.0); HEMOGLOBIN 13.9 g/dL (12-16); IMMATURE GRANULOCYTES 0.5 % (0-5); LYMPHOCYTES 25.6 % (15-50); MCH 31.7 pg (26.0-34.0); MCHC 31.1 g/dL (31.0-37.0); MCV 101.8 fL (80.0-100.0); MONOCYTES 12.1 % (2-11); NEUTROPHILS 56.7 % (40-80); PLATELET COUNT 137 10x3/uL (130-400); RBC 4.39 10x6/uL (4.00-5.40); RDW 13.2 % (11.5-14.5); WBC 6.5 10x3/uL (4.8-10.8)
[2019-11-22 06:35] LABS: ANION GAP 4.4 mmol/L (8-16); CREATININE - SERUM 0.9 mg/dL (0.6-1.3); POTASSIUM - SERUM 3.4 mmol/L (3.5-5.1)
--- NOTE | 2019-11-22 07:20 | NUR ---
RECIEVE REPORT. ALERT AND ORIENTED X4. SINUS RYTHM ON TELEMETRY. SITTING UP IN BED. DAUGHTER AT BEDSIDE. DENIES ANY NEEDS AT THIS TIME. CONTINUE PLAN OF CARE AND SAFETY PRECAUTIONS.
--- NOTE | 2019-11-22 08:16 | OP ---
PATIENT NAME: COMFORT STANLEY MEDICAL RECORD: [id number] :[birth year] LOCATION:D.M2 D.2131 ADMISSION DATE:11/18/19 SURGEON: NARDA MONROE MD DATE OF OPERATION: 11/21/2019 PROCEDURE: Left heart catheterization, selective coronary angiography, right femoral artery approach. CATHETERS: A 5-Mohawk sheath, 5/4 left and right Elias, 5/4 pig. The procedure was well tolerated. The patient returned to the carrasquillo, sheath removed. ExoSeal device placed. FINDINGS: Left ventriculography in 30-degree ARMENDARIZ view: Normal wall motion. Normal systolic function. CORONARY ANATOMY: LEFT MAIN: Left main is free of disease. LAD: Free of disease in the diagonal system. CIRCUMFLEX: Free of disease in the marginal system. RIGHT CORONARY ARTERY: Shows luminal irregularities distally, but no flow obstructive disease. IMPRESSION: Probable type 2 NSTEMI secondary to respiratory insufficiency and increased demand. No evidence of severe infective obstructive disease. TRANSINT:[id number] Voice Confirmation ID: [id number] DOCUMENT ID: [id number] NARDA MONROE MD at 0816 CC: [id number] DICTATION DATE: 11/21/19 1024 REPORTING DEVELOPER: 11/21/19 1505 ADM IN [facility] [address] [place] [address]
[2019-11-22 09:41] VITALS: BP 126/80
[2019-11-22 12:47] VITALS: BP 135/81
--- NOTE | 2019-11-22 15:29 | NUR ---
ALERT AND ORIENTED X4. SITTING UP IN BED. FAMILY AT BEDSIDE. REQUESTING DISCHARGE. NOTIFY ALFRED SHAFFER. DENIES ANY NEEDS. WALK STUDY ORDERED FOR HOME OXYGEN. CONTINUE PLAN OF CARE AND SAFETY PRECAUTIONS.
[2019-11-22 16:56] VITALS: BP 122/78
--- NOTE | 2019-11-22 17:10 | MORECARE ---
CASE MANAGEMENT DISCHARGE SUMMARY PATIENT: COMFORT STANLEY UNIT: [id number] ADM DATE: 11/18/19 AGE: 59 : 64 SEX: F ROOM/BED: D.2131 AUTHOR: JOCELYNN,DOC PHYSICIAN: REFERRING PHYSICIAN: GIFTY BIRCH MD DATE OF SERVICE: 11/22/19 Discharge Plan Patient Name: COMFORT STANLEY Facility: [facility]:[place] : 1960 Planned Disposition: Home with Home Health Anticipated Discharge Date: Discharge Date: Expected LOS: Initial Reviewer: [id number] Initial Review Date: 11/18/2019 Generated: 11/22/19 6:10 pm Comments DCP- Discharge Planning Updated by [email or web address]: [place] on 11/21/19 4:[address] Patient Name: COMFORT STANLEY Admission Status: ER Accout number: [id number] Admission Date: 11-18-2019 : 1960 Admission Diagnosis: Attending: GIFTY BIRCH Current LOS: 3 Anticipated DC Date: Planned Disposition: Home with Home Health Primary Insurance: MEDICARE A & B PLANNED EXTERNAL PROVIDER: [facility] Discharge Planning Comments: CM MET WITH PT IN ROOM TO DISCUSS DISCHARGE PLANNING AND NEEDS. PT REPORTS LIVING AT HOME INDEPENDENTLY AND ALONE PRIOR TO ADMISSION. PT PLANS TO DISCHARGE TO HER DAUGHTER'S HOME AT DISCHARGE. PT HAS NO MEDICAL EQUIPMENT AND NO OUTSIDE SERVICES ASSISTING IN THE HOME. CM DISCUSSED AVAILABILITY OF HOME HEALTH, REHAB SERVICES AND MEDICAL EQUIPMENT. PT WOULD LIKE A SHOWER CHAIR, WIDE BEDSIDE COMMODE FROM [facility] AND HOME HEALTH FROM [employer]; PT REPORTS HER DAUGHTER WILL PICK HER UP FOR DISCHARGE HOME. IMPORTANT MESSAGE FROM MEDICARE PROVIDED AND EXPLAINED, CHOICE SIGNED FOR [facility] AND [facility]. CM TO ARRANGE HOME HEALTH, [facility], WITH PHYSICIAN AGREEEMENT AND HOME HEALTH ORDER, PCP IS DR. Tanvi KO. Hearing Care Practitioner: [place] DCP- Discharge Planning Updated by [id number]: Karen Sharp on 11/18/19 4:[address] CM attempted to assess patients discharge planning needs. Patient is on continuous bipap and unable to answer questions. There isn't a contact lens curve grinder listed on facesheet. CM looked throughout patient's hard chart and found a number to Tonja Amado [phone]. CM called but did not get an answer. CM will continue to follow and assist as needed with discharge planning / needs. DCPIA - Discharge Planning Initial Assessment Updated by ALE: [place] on 11/21/19 5:06 pm * Is the patient Alert and Oriented? Yes * How many steps to enter\exit or inside your home? NONE * PCP DR. Tanvi KO * Pharmacy [facility] * Preadmission Environment Home Alone * ADLs Independent * Equipment None * Other Equipment [facility] - MEDICAL EQUIPMENT PROVIDER PREFERENCE * List name and contact numbers for known caregivers / representatives who currently or will assist patient after discharge: TOMAS SASHA, DTR, * Verbal permission to speak to the caregivers and representatives has been obtained from the patient. N/A * Community resources currently utilized None * Please name any agencies selected above. NONE * Additional services required to return to the preadmission environment? No * Can the patient safely return to the preadmission environment? Yes * Has this patient been hospitalized within the prior 30 days at any hospital? No External Providers External Provider: OTHER-OTHER Next Contact Date: 11/22/2019 Service Request Date: Service Type: Resolution: Reviewer: Comments: Coverage Notice Reviewer: [id number] Ogden Notice Issued Date-Time: 11/21/2019 16:25 Notice Type: Patient Choice Letter Notice Delivered To: Patient Relationship to Patient: Foot Miter Operator Name: Delivery Method: HAND - Hand Delivered Luci Days: Prior Verbal Notification: Recipient Understood Notice: Yes Recipient Signature: Yes Med Rec Note Co-signed by Attending: Coverage Notice Comment: [facility] Reviewer: [id number] Olivia Og[place] Notice Issued Date-Time: 11/21/2019 16:23 Notice Type: IM Discharge Notice Notice Delivered To: Patient Relationship to Patient: Foot Miter Operator Name: Delivery Method: HAND - Hand Delivered Luci Days: Prior Verbal Notification: Recipient Understood Notice: Yes Recipient Signature: Yes Med Rec Note Co-signed by Attending: Coverage Notice Comment: Last DP export: 11/21/19 4:22 p Patient Name: COMFORT STANLEY Page 89008 at 1710 All edits/amendments must be made on the electronic document DICTATION DATE: 11/22/191709 MAINSPRING STRIP INSPECTOR: DM 11/22/191709 RPT#: [id number] DC DATE: STATUS: ADM IN [facility] [address] [place] [address] END OF REPORT
--- NOTE | 2019-11-22 17:17 | MORECARE ---
CASE MANAGEMENT DISCHARGE SUMMARY PATIENT: COMFORT STANLEY UNIT: [id number] ADM DATE: 11/18/19 AGE: 59 : 64 SEX: F ROOM/BED: D.2133 AUTHOR: JOCELYNN,DOC PHYSICIAN: REFERRING PHYSICIAN: GIFTY BIRCH MD DATE OF SERVICE: 11/22/19 Discharge Plan Patient Name: COMFORT STANLEY Facility: [facility]:[employer] : 1960 Planned Disposition: Home with Home Health Anticipated Discharge Date: 11/22/19 Discharge Date: Expected LOS: 4 Initial Reviewer: [email or web address] Initial Review Date: 11/18/2019 Generated: 11/22/19 6:17 pm Comments DCP- Discharge Planning Updated by [id number]: [place] on 11/22/19 4:[address] Patient Name: COMFORT STANLEY Encounter No: [id number] : 1960 Primary Insurance: MEDICARE A & B Anticipated DC Date: 11-22-2019 Planned Disposition: Home with Home Health External Planned Provider: [facility] OFFICE DCP follow-up note: CM RECEIVED OXYGEN TESTING, OXYGEN, NEBLUIZER AND TRILOGY ORDER. CM RECEIVED HOME HEALTH ORDER. CM MET WITH PT IN ROOM TO DISCUSS DISCHARGE NEEDS AND PLANNING. CM DISCUSSED AVAILABILITY OF HOME HEALTH, REHAB SERVICES AND MEDICAL EQUIPMENT. PT CAN'T AFFORD $215 MONTHLY COPAY FOR TRILOGY, CAN AFFORD $25 FOR HOME AND PORTABLE OXYGEN, HAS NEBULIZER AT HOME ALREADY. PT WANTS TO DISCHARGE HOME TODAY, DAUGHTER TO TRANSPORT HOME AT DISCHARGE. IMPORTANT MESSAGE FROM MEDICARE PROVIDED AND EXPLAINED. CHOICE FOR NO MEDICAL EQUIPMENT PROVIDER PREFERENCE SIGNED. CM CALLED [facility] IN [place], , SPOKE TO CLINT AND PROVIDED ORDER FOR OXYGEN, FAXED REFERRAL INFORMATION TO [phone]. CLINT TO ARRANGE PORTABLE OXGYEN TO PT'S HOSPITAL ROOM TODAY FOR DISCHARGE AND HOME OXYGEN TO PT'S DAUGHTERS APARTMENT, WHERE PT [address] BE [address], [place]. [address]. VP PRODUCT MANAGEMENT NURSE NOTIFIED. CM SPOKE TO DR. CARLSON WHO INFORMED PT THAT PT MAY DISCHARGE HOME TODAY. ALFRED WARD NOTIFIED. [place], CASE MANAGEMENT DCP- Discharge Planning Updated by [id number]: [place] on 11/21/19 4:[address] Patient Name: COMFORT STANLEY Admission Status: ER Accout number: [id number] Admission Date: 11-18-2019 : 1960 Admission Diagnosis: Attending: GIFTY BIRCH Current LOS: 3 Anticipated DC Date: Planned Disposition: Home with Home Health Primary Insurance: MEDICARE A & B PLANNED EXTERNAL PROVIDER: [employer] Discharge Planning Comments: CM MET WITH PT IN ROOM TO DISCUSS DISCHARGE PLANNING AND NEEDS. PT REPORTS LIVING AT HOME INDEPENDENTLY AND ALONE PRIOR TO ADMISSION. PT PLANS TO DISCHARGE TO HER DAUGHTER'S HOME AT DISCHARGE. PT HAS NO MEDICAL EQUIPMENT AND NO OUTSIDE SERVICES ASSISTING IN THE HOME. CM DISCUSSED AVAILABILITY OF HOME HEALTH, REHAB SERVICES AND MEDICAL EQUIPMENT. PT WOULD LIKE A SHOWER CHAIR, WIDE BEDSIDE COMMODE FROM [facility] AND HOME HEALTH FROM [employer] PT REPORTS HER DAUGHTER WILL PICK HER UP FOR DISCHARGE HOME. IMPORTANT MESSAGE FROM MEDICARE PROVIDED AND EXPLAINED, CHOICE SIGNED FOR [facility] AND [facility]. CM TO ARRANGE HOME HEALTH, [facility], WITH PHYSICIAN AGREEEMENT AND HOME HEALTH ORDER, PCP IS DR. Tanvi KO. Molding Sander: [place] DCP- Discharge Planning Updated by [id number]: Karen Sharp on 11/18/19 4:[address] CM attempted to assess patients discharge planning needs. Patient is on continuous bipap and unable to answer questions. There isn't a personal computer network analyst listed on facesheet. CM looked throughout patient's hard chart and found a number to Tonja Baez [phone]. CM called but did not get an answer. CM will continue to follow and assist as needed with discharge planning / needs. DCPIA - Discharge Planning Initial Assessment Updated by [email or web address]: [place] on 11/21/19 5:06 pm * Is the patient Alert and Oriented? Yes * How many steps to enter\exit or inside your home? NONE * PCP DR. Tanvi KO * Pharmacy [facility] * Preadmission Environment Home Alone * ADLs Independent * Equipment None * Other Equipment [facility] - MEDICAL EQUIPMENT PROVIDER PREFERENCE * List name and contact numbers for known caregivers / representatives who currently or will assist patient after discharge: TOMAS BAEZ DTR, * Verbal permission to speak to the caregivers and representatives has been obtained from the patient. N/A * Community resources currently utilized None * Please name any agencies selected above. NONE * Additional services required to return to the preadmission environment? No * Can the patient safely return to the preadmission environment? Yes * Has this patient been hospitalized within the prior 30 days at any hospital? No Coverage Notice Reviewer: [id number] Ogden Notice Issued Date-Time: 11/21/2019 16:25 Notice Type: Patient Choice Letter Notice Delivered To: Patient Relationship to Patient: Hydramatic Specialist Name: Delivery Method: HAND - Hand Delivered Luci Days: Prior Verbal Notification: Recipient Understood Notice: Yes Recipient Signature: Yes Med Rec Note Co-signed by Attending: Coverage Notice Comment: [facility] Reviewer: [id number] Olivia Og[place] Notice Issued Date-Time: 11/21/2019 16:23 Notice Type: IM Discharge Notice Notice Delivered To: Patient Relationship to Patient: Hydramatic Specialist Name: Delivery Method: HAND - Hand Delivered [place] Days: Prior Verbal Notification: Recipient Understood Notice: Yes Recipient Signature: Yes Med Rec Note Co-signed by Attending: Coverage Notice Comment: Last DP export: 11/22/19 4:10 p Patient Name: COMFORT STANLEY Page [id number] at 1717 All edits/amendments must be made on the electronic document DICTATION DATE: 11/22/191716 COLD REDUCTION ROLLER: MARIS 11/22/191716 RPT#: [id number] DC DATE: STATUS: ADM IN [facility] [address] [place] [address] END OF REPORT
--- NOTE | 2019-11-22 17:26 | MORECARE ---
CASE MANAGEMENT DISCHARGE SUMMARY PATIENT: COMFORT STANLEY UNIT: [id number] ADM DATE: 11/18/19 AGE: 59 : 64 SEX: F ROOM/BED: D.2138 AUTHOR: JOCELYNN,DOC PHYSICIAN: REFERRING PHYSICIAN: GIFTY BIRCH MD DATE OF SERVICE: 11/22/19 Discharge Plan Patient Name: COMFORT STANLEY Facility: [facility]:[place] : 1960 Planned Disposition: Home with Home Health Anticipated Discharge Date: 11/22/19 Discharge Date: Expected LOS: 4 Initial Reviewer: [id number] Initial Review Date: 11/18/2019 Generated: 11/22/19 6:26 pm Comments DCP- Discharge Planning Updated by [id number]: Los Ogden on 11/22/19 4:[address] Patient Name: COMFORT STANLEY Encounter No: [id number] : 1960 Primary Insurance: MEDICARE A & B Anticipated DC Date: 11-22-2019 Planned Disposition: Home with Home Health External Planned Provider: [facility] OFFICE DCP follow-up note: CM RECEIVED OXYGEN TESTING, OXYGEN, NEBLUIZER AND TRILOGY ORDER. CM RECEIVED HOME HEALTH ORDER. CM MET WITH PT IN ROOM TO DISCUSS DISCHARGE NEEDS AND PLANNING. CM DISCUSSED AVAILABILITY OF HOME HEALTH, REHAB SERVICES AND MEDICAL EQUIPMENT. PT CAN'T AFFORD $215 MONTHLY COPAY FOR TRILOGY, CAN AFFORD $25 FOR HOME AND PORTABLE OXYGEN, HAS NEBULIZER AT HOME ALREADY. PT WANTS TO DISCHARGE HOME TODAY, DAUGHTER TO TRANSPORT HOME AT DISCHARGE. IMPORTANT MESSAGE FROM MEDICARE PROVIDED AND EXPLAINED. CHOICE FOR NO MEDICAL EQUIPMENT PROVIDER PREFERENCE SIGNED. CM CALLED [employer] [facility] IN [place], , SPOKE TO CLINT AND PROVIDED ORDER FOR OXYGEN, FAXED REFERRAL INFORMATION TO [phone]. CLINT TO ARRANGE PORTABLE OXGYEN TO PT'S HOSPITAL ROOM TODAY FOR DISCHARGE AND HOME OXYGEN TO PT'S DAUGHTERS APARTMENT, WHERE PT WILL BE STAYIN [address], [address], [place]. [address]. MARKETER NURSE NOTIFIED. CM SPOKE TO DR. CARLSON WHO INFORMED PT THAT PT MAY DISCHARGE HOME TODAY. ALFRED WARD NOTIFIED. Los Ogden, CASE MANAGEMENT DCP- Discharge Planning Updated by [id number]: Los Ogden on 11/21/19 4:[address] Patient Name: COMFORT STANLEY Admission Status: ER Accout number: [id number] Admission Date: 11-18-2019 : 1960 Admission Diagnosis: Attending: GIFTY BIRCH Current LOS: 3 Anticipated DC Date: Planned Disposition: Home with Home Health Primary Insurance: MEDICARE A & B PLANNED EXTERNAL PROVIDER: [employer] Discharge Planning Comments: CM MET WITH PT IN ROOM TO DISCUSS DISCHARGE PLANNING AND NEEDS. PT REPORTS LIVING AT HOME INDEPENDENTLY AND ALONE PRIOR TO ADMISSION. PT PLANS TO DISCHARGE TO HER DAUGHTER'S HOME AT DISCHARGE. PT HAS NO MEDICAL EQUIPMENT AND NO OUTSIDE SERVICES ASSISTING IN THE HOME. CM DISCUSSED AVAILABILITY OF HOME HEALTH, REHAB SERVICES AND MEDICAL EQUIPMENT. PT WOULD LIKE A SHOWER CHAIR, WIDE BEDSIDE COMMODE FROM [facility] AND HOME HEALTH FROM [employer]; PT REPORTS HER DAUGHTER WILL PICK HER UP FOR DISCHARGE HOME. IMPORTANT MESSAGE FROM MEDICARE PROVIDED AND EXPLAINED, CHOICE SIGNED FOR [facility] AND [employer] [facility]. CM TO ARRANGE HOME HEALTH, [facility], WITH PHYSICIAN AGREEEMENT AND HOME HEALTH ORDER, PCP IS DR. Tanvi KO. Equalizing Saw Operator: Los Ogden DCP- Discharge Planning Updated by [id number]: Karen Sharp on 11/18/19 4:[address] CM attempted to assess patients discharge planning needs. Patient is on continuous bipap and unable to answer questions. There isn't a contact printer dry film listed on facesheet. CM looked throughout patient's hard chart and found a number to Tonja Baez [phone]. CM called but did not get an answer. CM will continue to follow and assist as needed with discharge planning / needs. DCPIA - Discharge Planning Initial Assessment Updated by [id number]: Los Ogden on 11/21/19 5:06 pm * Is the patient Alert and Oriented? Yes * How many steps to enter\exit or inside your home? NONE * PCP DR. Tanvi KO * Pharmacy [facility] * Preadmission Environment Home Alone * ADLs Independent * Equipment None * Other Equipment [facility] - MEDICAL EQUIPMENT PROVIDER PREFERENCE * List name and contact numbers for known caregivers / representatives who currently or will assist patient after discharge: TOMAS BAEZ DTR, * Verbal permission to speak to the caregivers and representatives has been obtained from the patient. N/A * Community resources currently utilized None * Please name any agencies selected above. NONE * Additional services required to return to the preadmission environment? No * Can the patient safely return to the preadmission environment? Yes * Has this patient been hospitalized within the prior 30 days at any hospital? No External [facility]iders [facility] Next Contact Date: 11/22/2019 Service Request Date: Service Type: Resolution: Reviewer: Comments: Coverage Notice Reviewer: ALE Ogden Notice Issued Date-Time: 11/21/2019 16:25 Notice Type: Patient Choice Letter Notice Delivered To: Patient Relationship to Patient: Mold Shop Supervisor Name: Delivery Method: HAND - Hand Delivered Luci Days: Prior Verbal Notification: Recipient Understood Notice: Yes Recipient Signature: Yes Med Rec Note Co-signed by Attending: Coverage Notice Comment: [facility] Reviewer: ALE Ogden Notice Issued Date-Time: 11/21/2019 16:23 Notice Type: IM Discharge Notice Notice Delivered To: Patient Relationship to Patient: Mold Shop Supervisor Name: Delivery Method: HAND - Hand Delivered Luci Days: Prior Verbal Notification: Recipient Understood Notice: Yes Recipient Signature: Yes Med Rec Note Co-signed by Attending: Coverage Notice Comment: Reviewer: ALE Ogden Notice Issued Date-Time: 11/22/2019 15:59 Notice Type: IM Discharge Notice Notice Delivered To: Patient Relationship to Patient: Mold Shop Supervisor Name: Delivery Method: HAND - Hand Delivered Luci Days: Prior Verbal Notification: Recipient Understood Notice: Yes Recipient Signature: Yes Med Rec Note Co-signed by Attending: Coverage Notice Comment: Reviewer: ALE Ogden Notice Issued Date-Time: 11/22/2019 15:59 Notice Type: Patient Choice Letter Notice Delivered To: Patient Relationship to Patient: Mold Shop Supervisor Name: Delivery Method: HAND - Hand Delivered Luci Days: Prior Verbal Notification: Recipient Understood Notice: Yes Recipient Signature: Yes Med Rec Note Co-signed by Attending: Coverage Notice Comment: NO MEDICAL EQUIPMENT PROVIDER PREFERENCE Last DP export: 11/22/19 4:17 p Patient Name: COMFORT STANLEY Page [id number] at 1726 All edits/amendments must be made on the electronic document DICTATION DATE: 11/22/191725 VIDEO GAME DESIGNER: MARIS 11/22/191725 RPT#: [id number] DC DATE: STATUS: ADM IN [facility] [address] [place] [address] END OF REPORT
--- NOTE | 2019-11-22 17:34 | MORECARE ---
CASE MANAGEMENT DISCHARGE SUMMARY PATIENT: COMFORT STANLEY UNIT: [id number] ADM DATE: 11/18/19 AGE: 59 : 64 SEX: F ROOM/BED: D.213 AUTHOR: JOCELYNN,DOC PHYSICIAN: REFERRING PHYSICIAN: GIFTY BIRCH MD DATE OF SERVICE: 11/22/19 Discharge Plan Patient Name: COMFORT STANLEY Facility: [facility]:[place] : 1960 Planned Disposition: Home with Home Health Anticipated Discharge Date: 11/22/19 Discharge Date: Expected LOS: 4 Initial Reviewer: [id number] Initial Review Date: 11/18/2019 Generated: 11/22/19 6:33 pm Comments DCP- Discharge Planning Updated by [id number]: Los Martinez on 11/22/19 4:[address] Patient Name: COMFORT STANLEY Encounter No: [id number] : 1960 Primary Insurance: MEDICARE A & B Anticipated DC Date: 11-22-2019 Planned Disposition: Home with Home Health External Planned Provider: [facility] DCP follow-up note: CM RECEIVED OXYGEN TESTING, OXYGEN, NEBLUIZER AND TRILOGY ORDER. CM RECEIVED HOME HEALTH ORDER. CM MET WITH PT IN ROOM TO DISCUSS DISCHARGE NEEDS AND PLANNING. CM DISCUSSED AVAILABILITY OF HOME HEALTH, REHAB SERVICES AND MEDICAL EQUIPMENT. PT CAN'T AFFORD $215 MONTHLY COPAY FOR TRILOGY, CAN AFFORD $25 FOR HOME AND PORTABLE OXYGEN, HAS NEBULIZER AT HOME ALREADY. PT WANTS TO DISCHARGE HOME TODAY, DAUGHTER TO TRANSPORT HOME AT DISCHARGE. IMPORTANT MESSAGE FROM MEDICARE PROVIDED AND EXPLAINED. CHOICE FOR NO MEDICAL EQUIPMENT PROVIDER PREFERENCE SIGNED. CM CALLED [employer] [facility] IN [place], , SPOKE TO CLINT AND PROVIDED ORDER FOR OXYGEN, FAXED REFERRAL INFORMATION TO [phone]. [facility] TO ARRANGE PORTABLE OXGYEN TO PT'S HOSPITAL ROOM TODAY FOR DISCHARGE AND HOME OXYGEN TO PT'S DAUGHTERS APARTMENT, WHERE PT WILL BE STAYIN [address], [address], [place]. [address]. PACKAGING SUPERVISOR NURSE NOTIFIED. CM SPOKE TO DR. CARLSON WHO INFORMED PT THAT PT MAY DISCHARGE HOME TODAY. ALFRED WARD NOTIFIED. Los Martinez, CASE MANAGEMENT Appended by Los Martinez on 11/22/2019 17:29 CDT: CM CALLED [facility], , SPOKE TO PRINT AND PATTERN DESIGNER NURSE ARIC WHO ACCEPTED REFERRAL FOR HOME HEALTH. CM FAXED REFERRAL TO [facility] AT [phone]. FAX DC ORDER AND DISCHARGE INFORMATION TO [facility] OFFICE AT [phone]. LOS MARTINEZ, CASE MANAGEMENT DCP- Discharge Planning Updated by [id number]: Los Martinez on 11/21/19 4:[address] Patient Name: COMFORT STANLEY Admission Status: ER Accout number: [id number] Admission Date: 11-18-2019 : 1960 Admission Diagnosis: Attending: GIFTY BIRCH Current LOS: 3 Anticipated DC Date: Planned Disposition: Home with Home Health Primary Insurance: MEDICARE A & B PLANNED EXTERNAL PROVIDER: [facility] Discharge Planning Comments: CM MET WITH PT IN ROOM TO DISCUSS DISCHARGE PLANNING AND NEEDS. PT REPORTS LIVING AT HOME INDEPENDENTLY AND ALONE PRIOR TO ADMISSION. PT PLANS TO DISCHARGE TO HER DAUGHTER'S HOME AT DISCHARGE. PT HAS NO MEDICAL EQUIPMENT AND NO OUTSIDE SERVICES ASSISTING IN THE HOME. CM DISCUSSED AVAILABILITY OF HOME HEALTH, REHAB SERVICES AND MEDICAL EQUIPMENT. PT WOULD LIKE A SHOWER CHAIR, WIDE BEDSIDE COMMODE FROM [facility] AND HOME HEALTH FROM [employer] [facility]; PT REPORTS HER DAUGHTER WILL PICK HER UP FOR DISCHARGE HOME. IMPORTANT MESSAGE FROM MEDICARE PROVIDED AND EXPLAINED, CHOICE SIGNED FOR [facility] AND [employer] [facility]. CM TO ARRANGE HOME HEALTH, [facility], WITH PHYSICIAN AGREEEMENT AND HOME HEALTH ORDER, PCP IS DR. Tanvi KO. Leather Production Artisan: Los Martinez DCP- Discharge Planning Updated by [id number]: Karen Sharp on 11/18/19 4:[address] CM attempted to assess patients discharge planning needs. Patient is on continuous bipap and unable to answer questions. There isn't a call or contact centre coach listed on facesheet. CM looked throughout patient's hard chart and found a number to Tonja Baez [phone]. CM called but did not get an answer. CM will continue to follow and assist as needed with discharge planning / needs. DCPIA - Discharge Planning Initial Assessment Updated by [id number]: Los Martinez on 11/21/19 5:06 pm * Is the patient Alert and Oriented? Yes * How many steps to enter\exit or inside your home? NONE * PCP DR. Tanvi KO * Pharmacy [facility] * Preadmission Environment Home Alone * ADLs Independent * Equipment None * Other Equipment [facility] - MEDICAL EQUIPMENT PROVIDER PREFERENCE * List name and contact numbers for known caregivers / representatives who currently or will assist patient after discharge: TOMAS BAEZ, DTR, * Verbal permission to speak to the caregivers and representatives has been obtained from the patient. N/A * Community resources currently utilized None * Please name any agencies selected above. NONE * Additional services required to return to the preadmission environment? No * Can the patient safely return to the preadmission environment? Yes * Has this patient been hospitalized within the prior 30 days at any hospital? No Coverage Notice Reviewer: ALE Martinez Notice Issued Date-Time: 11/21/2019 16:25 Notice Type: Patient Choice Letter Notice Delivered To: Patient Relationship to Patient: Inspector Eyeglass Name: Delivery Method: HAND - Hand Delivered Luci Days: Prior Verbal Notification: Recipient Understood Notice: Yes Recipient Signature: Yes Med Rec Note Co-signed by Attending: Coverage Notice Comment: [facility] Reviewer: [id number] Martinez Notice Issued Date-Time: 11/21/2019 16:23 Notice Type: IM Discharge Notice Notice Delivered To: Patient Relationship to Patient: Inspector Eyeglass Name: Delivery Method: HAND - Hand Delivered Luci Days: Prior Verbal Notification: Recipient Understood Notice: Yes Recipient Signature: Yes Med Rec Note Co-signed by Attending: Coverage Notice Comment: Reviewer: ALE Martinez Notice Issued Date-Time: 11/22/2019 15:59 Notice Type: IM Discharge Notice Notice Delivered To: Patient Relationship to Patient: Inspector Eyeglass Name: Delivery Method: HAND - Hand Delivered Luci Days: Prior Verbal Notification: Recipient Understood Notice: Yes Recipient Signature: Yes Med Rec Note Co-signed by Attending: Coverage Notice Comment: Reviewer: ALE Martinez Notice Issued Date-Time: 11/22/2019 15:59 Notice Type: Patient Choice Letter Notice Delivered To: Patient Relationship to Patient: Inspector Eyeglass Name: Delivery Method: HAND - Hand Delivered Luci Days: Prior Verbal Notification: Recipient Understood Notice: Yes Recipient Signature: Yes Med Rec Note Co-signed by Attending: Coverage Notice Comment: NO MEDICAL EQUIPMENT PROVIDER PREFERENCE Last DP export: 11/22/19 4:26 p Patient Name: COMFORT STANLEY Page [id number] at 1734 All edits/amendments must be made on the electronic document DICTATION DATE: 11/22/191732 MANAGER OF SUSTAINABILITY: MARIS 11/22/191732 RPT#: [id number] DC DATE: STATUS: ADM IN [facility] [address] [place] [address] END OF REPORT
--- NOTE | 2019-11-22 18:25 | NUR ---
ALERT AND ORIENTED X4. SITTING UP ON SIDE OF BED. DC BROOKE BULB INTACT. DC LT WRIST IV TIP INTACT. DISCHARGE INSTRUCTIONS GIVEN VERBALLY AND WRITTEN. DISCHARGE PAPERS SIGNED ON CHART. PORTABLE OXYGEN DELIVERED. ESCORT TO RIDE VIA WHEELCHAIR. REMAINS FREE FROM INJURY.
--- NOTE | 2019-11-23 09:22 | MORECARE ---
CASE MANAGEMENT DISCHARGE SUMMARY PATIENT: COMFORT STANLEY UNIT: [id number] ADM DATE: 11/18/19 AGE: 59 : 64 SEX: F ROOM/BED: D.2131 AUTHOR: JOCELYNN,DOC PHYSICIAN: REFERRING PHYSICIAN: GIFTY BIRCH MD DATE OF SERVICE: 11/23/19 Discharge Plan Patient Name: COMFORT STANLEY Facility: [facility]:[place] : 1960 Planned Disposition: Home with Home Health Anticipated Discharge Date: 11/22/19 Discharge Date: 11/22/2019 Expected LOS: 4 Initial Reviewer: [email or web address] Initial Review Date: 11/18/2019 Generated: 11/23/19 10:22 am Comments DCP- Discharge Planning Updated by [id number]: Shaw Martinez on 11/23/19 8:[address] Patient Name: COMFORT STANLEY Encounter No: [id number] : 1960 Primary Insurance: MEDICARE A & B Anticipated DC Date: 11-22-2019 Planned Disposition: Home with Home Health External Planned Provider:[facility] DCP follow-up note: CM FAXED DC ORDER AND DISCHARGE INFORMATION TO [facility] OFF[facility] AT [phone]. MICHAEL DUMONT DCP- Discharge Planning Updated by [id number]: Shaw Martinez on 11/22/19 4:[address] Patient Name: COMFORT STANLEY Encounter No: [id number] : 1960 Primary Insurance: MEDICARE A & B Anticipated DC Date: 11-22-2019 Planned Disposition: Home with Home Health External Planned Provider: [facility] OFF[facility] DCP follow-up note: CM RECEIVED OXYGEN TESTING, OXYGEN, NEBLUIZER AND TRILOGY ORDER. CM RECEIVED HOME HEALTH ORDER. CM MET WITH PT IN ROOM TO DISCUSS DISCHARGE NEEDS AND PLANNING. CM DISCUSSED AVAILABILITY OF HOME HEALTH, REHAB SERVICES AND MEDICAL EQUIPMENT. PT CAN'T AFFORD $215 MONTHLY COPAY FOR TRILOGY, CAN AFFORD $25 FOR HOME AND PORTABLE OXYGEN, HAS NEBULIZER AT HOME ALREADY. PT WANTS TO DISCHARGE HOME TODAY, DAUGHTER TO TRANSPORT HOME AT DISCHARGE. IMPORTANT MESSAGE FROM MEDICARE PROVIDED AND EXPLAINED. CHOICE FOR NO MEDICAL EQUIPMENT PROVIDER PREFERENCE SIGNED. CM CALLED [facility] IN [place], , SPOKE TO CLINT AND PROVIDED ORDER FOR OXYGEN, FAXED REFERRAL INFORMATION TO [phone]. [facility] TO ARRANGE PORTABLE OXGYEN TO PT'S HOSPITAL ROOM TODAY FOR DISCHARGE AND HOME OXYGEN TO PT'S DAUGHTERS APARTMENT, WHERE PT WILL BE STAYIN [address], [address], [place]. [address]. HAND CANDLE DIPPER NURSE NOTIFIED. PEMA SPOKE TO DR. CARLSON WHO INFORMED PT THAT PT MAY DISCHARGE HOME TODAY. ALFRED WARD NOTIFIED. Shaw Martinez, CASE MANAGEMENT Appended by Shaw Martinez on 11/22/2019 17:29 CDT: CM CALLED [facility] OFFICE, , SPOKE TO PANTRY WORKER NURSE ARIC WHO ACCEPTED REFERRAL FOR HOME HEALTH. CM FAXED REFERRAL TO [facility] AT [phone]. FAX DC ORDER AND DISCHARGE INFORMATION TO [facility] OFFICE AT [phone]. SHAW MARTINEZ, CASE MANAGEMENT DCP- Discharge Planning Updated by [id number]: Shaw Martinez on 11/21/19 4:[address] Patient Name: COMFORT STANLEY Admission Status: ER Accout number: [id number] Admission Date: 11-18-2019 : 1960 Admission Diagnosis: Attending: GIFTY BIRCH Current LOS: 3 Anticipated DC Date: Planned Disposition: Home with Home Health Primary Insurance: MEDICARE A & B PLANNED EXTERNAL PROVIDER: [facility] Discharge Planning Comments: CM MET WITH PT IN ROOM TO DISCUSS DISCHARGE PLANNING AND NEEDS. PT REPORTS LIVING AT HOME INDEPENDENTLY AND ALONE PRIOR TO ADMISSION. PT PLANS TO DISCHARGE TO HER DAUGHTER'S HOME AT DISCHARGE. PT HAS NO MEDICAL EQUIPMENT AND NO OUTSIDE SERVICES ASSISTING IN THE HOME. CM DISCUSSED AVAILABILITY OF HOME HEALTH, REHAB SERVICES AND MEDICAL EQUIPMENT. PT WOULD LIKE A SHOWER CHAIR, WIDE BEDSIDE COMMODE FROM [facility] AND HOME HEALTH FROM [employer] [facility]; PT REPORTS HER DAUGHTER WILL PICK HER UP FOR DISCHARGE HOME. IMPORTANT MESSAGE FROM MEDICARE PROVIDED AND EXPLAINED, CHOICE SIGNED FOR [facility] AND [facility]. CM TO ARRANGE HOME HEALTH, [facility], WITH PHYSICIAN AGREEEMENT AND HOME HEALTH ORDER, PCP IS DR. Tanvi KO. Copyright Expert: Shaw Martinez DCP- Discharge Planning Updated by [email or web address]: Karen Baldwinr on 11/18/19 4:[address] CM attempted to assess patients discharge planning needs. Patient is on continuous bipap and unable to answer questions. There isn't a banquet set up person listed on facesheet. CM looked throughout patient's hard chart and found a number to Tonja Baez [phone]. CM called but did not get an answer. CM will continue to follow and assist as needed with discharge planning / needs. DCPIA - Discharge Planning Initial Assessment Updated by [id number]: Shaw Martinez on 11/21/19 5:06 pm * Is the patient Alert and Oriented? Yes * How many steps to enter\exit or inside your home? NONE * PCP DR. Tanvi KO * Pharmacy [facility] * Preadmission Environment Home Alone * ADLs Independent * Equipment None * Other Equipment [facility] - MEDICAL EQUIPMENT PROVIDER PREFERENCE * List name and contact numbers for known caregivers / representatives who currently or will assist patient after discharge: TOMAS BAEZ, DTR, * Verbal permission to speak to the caregivers and representatives has been obtained from the patient. N/A * Community resources currently utilized None * Please name any agencies selected above. NONE * Additional services required to return to the preadmission environment? No * Can the patient safely return to the preadmission environment? Yes * Has this patient been hospitalized within the prior 30 days at any hospital? No Coverage Notice Reviewer: ALE Martinez Notice Issued Date-Time: 11/21/2019 16:25 Notice Type: Patient Choice Letter Notice Delivered To: Patient Relationship to Patient: Orderlies Teacher Name: Delivery Method: HAND - Hand Delivered Luci Days: Prior Verbal Notification: Recipient Understood Notice: Yes Recipient Signature: Yes Med Rec Note Co-signed by Attending: Coverage Notice Comment: [facility] Reviewer: [id number] Martinez Notice Issued Date-Time: 11/21/2019 16:23 Notice Type: IM Discharge Notice Notice Delivered To: Patient Relationship to Patient: Orderlies Teacher Name: Delivery Method: HAND - Hand Delivered Luci Days: Prior Verbal Notification: Recipient Understood Notice: Yes Recipient Signature: Yes Med Rec Note Co-signed by Attending: Coverage Notice Comment: Reviewer: [id number] Martinez Notice Issued Date-Time: 11/22/2019 15:59 Notice Type: IM Discharge Notice Notice Delivered To: Patient Relationship to Patient: Orderlies Teacher Name: Delivery Method: HAND - Hand Delivered Luci Days: Prior Verbal Notification: Recipient Understood Notice: Yes Recipient Signature: Yes Med Rec Note Co-signed by Attending: Coverage Notice Comment: Reviewer: [id number] - Shaw Martinez Notice Issued Date-Time: 11/22/2019 15:59 Notice Type: Patient Choice Letter Notice Delivered To: Patient Relationship to Patient: Orderlies Teacher Name: Delivery Method: HAND - Hand Delivered Luci Days: Prior Verbal Notification: Recipient Understood Notice: Yes Recipient Signature: Yes Med Rec Note Co-signed by Attending: Coverage Notice Comment: NO MEDICAL EQUIPMENT PROVIDER PREFERENCE Last DP export: 11/22/19 4:34 p Patient Name: COMFORT STANLEY Page [phone] at 0922 All edits/amendments must be made on the electronic document DICTATION DATE: 11/23/19921 ENTERTAINMENT REPORTER: MARIS 11/23/19921 RPT#: [id number] DC DATE:11/22/19 STATUS: DIS IN [facility] [address] [place] [address] END OF REPORT
== END 2019-11-22 18:27 | disposition home health service (06) | DRG 280 ==
LOC: D.ER 03:18 → D.ICU 03:51 → D.M2 11-19 17:52
PROVIDERS: Emergency Medicine; Internal Medicine Interventional Cardiology; ADMIT Internal Medicine Nephrology; ATTEND Internal Medicine Nephrology
PROC: B2111ZZ Fluoroscopy of Multiple Coronary Arteries using Low Osmolar Contrast (ICD-10-PCS; principal; 2019-11-21)
PROC: B2151ZZ Fluoroscopy of Left Heart using Low Osmolar Contrast (ICD-10-PCS; 2019-11-21)
PROC: 4A023N7 Measurement of Cardiac Sampling and Pressure, Left Heart, Percutaneous Approach (ICD-10-PCS; 2019-11-21)
DX: I21.4 Non-ST elevation (NSTEMI) myocardial infarction (principal); J96.02 Acute respiratory failure with hypercapnia; G93.41 Metabolic encephalopathy; J96.01 Acute respiratory failure with hypoxia; Z68.43 Body mass index [BMI] 50.0-59.9, adult; I10 Essential (primary) hypertension; E03.9 Hypothyroidism, unspecified; E66.01 Morbid (severe) obesity due to excess calories; E87.6 Hypokalemia